=== PATIENT | female | born 1955 ===

== ENCOUNTER 2024-02-10 11:25 | Outpatient (CLI) | payer OTHER ==
[2024-02-10] MEDS ORDERED: XIGDUO XR 10 M1 EAC1 (13:44)
[2024-02-10] MEDS ORDERED: LIPITOR (13:45)
[2024-02-10] MEDS ORDERED: COZAR (13:45)
== END 2024-02-10 14:24 | disposition home or self-care (01) ==
LOC: RAD 11:25
PROVIDERS: ATTEND Surgery Surgery of the Hand
DX: Z01.811 Encounter for preprocedural respiratory examination (principal)

== ENCOUNTER 2024-02-17 05:30 | Day surgery (SDC) | payer OTHER ==
[~2024-02-17 05:30] MED LIST: COZAR; LIPITOR; XIGDUO XR 10 M1 EAC1
[2024-02-17] MEDS ORDERED: BACITRACIN 28.35 GM OINT.TUBE TOP ONE (08:00)
[2024-02-17] MEDS ORDERED: BUPIVACAINE HCL 30 ML VIAL IJ ONE (08:00)
[2024-02-17] MEDS ORDERED: CEFAZOLIN SODIUM 1,000 MG VIAL IV ONE (08:00)
== END 2024-02-17 10:20 | disposition home or self-care (01) ==
LOC: CIR.AMB 05:30 → EDBD 10:30 → CIR.AMB 11:15
PROVIDERS: ATTEND Surgery Surgery of the Hand
DX: M67.844 Other specified disorders of tendon, left hand (principal)